=== PATIENT | female | born 1950 ===

== ENCOUNTER 2023-04-29 14:50 | Day surgery (SDC) | payer MEDICARE, OTHER ==
[2023-04-29] MEDS: Polymyxin B/Trimethoprim 10 ML Bottle EYELF SCH (15:00)
[2023-04-29] MEDS: Brimonidine 0.2% Ophth Soln 5 ML Bottle EYELF SCH (15:05)
[2023-04-29] MEDS: Phenylephrine 2.5% Ophth Soln 2 ML Bot EYELF SCH (15:08)
[2023-04-29] MEDS: Tropicamide 1% Ophth Soln 3 ML Bottle EYELF SCH (15:14)
[2023-04-29] MEDS: Proparacaine 0.5% Ophth Soln 15 ML Bottle EYEBOTH SCH (15:29)
[2023-04-29] MEDS: Lidocaine 1% PF 2 ML SDV INJECT SCH (15:49)
[2023-04-29] MEDS: Cefuroxime 10 MG/ML SYRINGE EYELF SCH (16:00)
[2023-04-29] MEDS: Pilocarpine 4% Ophth Soln 15 ML Bot EYELF SCH (16:01)
== END 2023-04-29 16:07 | disposition home or self-care (01) ==
LOC: JD.SDS 14:50
PROVIDERS: ATTEND Ophthalmology
DX: H25.813 Combined forms of age-related cataract, bilateral (principal); H40.013 Open angle with borderline findings, low risk, bilateral; H35.3131 Nonexudative age-related macular degeneration, bilateral, early dry stage; H35.363 Drusen (degenerative) of macula, bilateral; H16.103 Unspecified superficial keratitis, bilateral; H16.223 Keratoconjunctivitis sicca, not specified as Sjogren's, bilateral; H18.513 Endothelial corneal dystrophy, bilateral; D31.31 Benign neoplasm of right choroid; Z79.899 Other long term (current) drug therapy; Z91.041 Radiographic dye allergy status
CPT/HCPCS: A9270-GY; J3490; V2788

== ENCOUNTER 2023-05-27 07:46 | Day surgery (SDC) | payer MEDICARE, OTHER ==
[2023-05-27] MEDS: Polymyxin B/Trimethoprim 10 ML Bottle EYERT SCH (09:20)
[2023-05-27] MEDS: Brimonidine 0.2% Ophth Soln 5 ML Bottle EYERT SCH (09:25)
[2023-05-27] MEDS: Phenylephrine 2.5% Ophth Soln 2 ML Bot EYERT SCH (09:30)
[2023-05-27] MEDS: Tropicamide 1% Ophth Soln 3 ML Bottle EYERT SCH (09:35)
[2023-05-27] MEDS: Tetracaine HCl/PF 0.5% 4 ML Bottle EYEBOTH SCH (10:08)
[2023-05-27] MEDS: Lidocaine 1% PF 2 ML SDV INJECT SCH (10:18)
[2023-05-27] MEDS: Cefuroxime 10 MG/ML SYRINGE EYERT SCH (10:32)
[2023-05-27] MEDS: Pilocarpine 4% Ophth Soln 15 ML Bot EYERT SCH (10:32)
== END 2023-05-27 10:43 | disposition home or self-care (01) ==
LOC: JD.SDS 07:46
PROVIDERS: ATTEND Ophthalmology
DX: H25.811 Combined forms of age-related cataract, right eye (principal); H35.3131 Nonexudative age-related macular degeneration, bilateral, early dry stage; H35.363 Drusen (degenerative) of macula, bilateral; H16.103 Unspecified superficial keratitis, bilateral; H16.223 Keratoconjunctivitis sicca, not specified as Sjogren's, bilateral; H18.513 Endothelial corneal dystrophy, bilateral; D31.31 Benign neoplasm of right choroid; H40.031 Anatomical narrow angle, right eye
CPT/HCPCS: A9270-GY; J0697; J3490